=== PATIENT | female | born 1995 | race Caucasian/White ===

== ENCOUNTER 2017-02-13 15:12 | Emergency (ER) | payer OTHER ==
[~2017-02-13 15:12] MED LIST: ADVAIR 1001 DISK W/D PO; ALBUTEROL MININEB NEB; ALLERGY10 M1; AUGMENTIN PO; CIPRO PO; CLARITIN10 MG PO; FLAGYL250 M1 PO; HYDROMET SYRUP480 ML PO; IBUPROFEN400 MG PO; PANTOPRAZOLE SO40 MG PO; PRILOSEC PO; SINGULAIR PO; ULTRAM PO; ZITHROMAX PO; ZOFRAN ODT4 MG PO; ZOFRAN PO; ZYRTEC10 M1 PO
== END 2017-02-13 16:27 | disposition home or self-care (01) ==
LOC: SED 15:12
DX: J06.9 Acute upper respiratory infection, unspecified (principal); Z79.899 Other long term (current) drug therapy
CPT/HCPCS: 99282